=== PATIENT | female | born 1995 | race African-American/Black ===

== ENCOUNTER 2020-03-05 00:38 | Outpatient (CLI) | payer OTHER ==
[2020-03-05 01:34] LABS: APPEARANCE,URINE SLIGHTLY-CLOUDY; BILIRUBIN,URINE NEGATIVE (NEGATIVE); COLOR,URINE YELLOW; GLUCOSE, URINE NEGATIVE (NEGATIVE); KETONES,URINE NEGATIVE (NEGATIVE); LEUKOCYTE ESTERASE,URINE NEGATIVE (NEGATIVE); NITRITE,URINE NEGATIVE (NEGATIVE); PROTEIN,URINE NEGATIVE (NEGATIVE); URINE SPECIFIC GRAVITY 1.014; UROBILINOGEN,URINE NEGATIVE mg/dL (<2.0)
[2020-03-05 01:45] LABS: URINE AMPHETAMINES SCREEN NEGATIVE; URINE BARBITURATES SCREEN NEGATIVE; URINE BENZODIAZEPINES SCREEN NEGATIVE; URINE COCAINE SCREEN NEGATIVE; URINE MARIJUANA (THC) SCREEN NEGATIVE; URINE METHADONE SCREEN NEGATIVE; URINE PHENCYCLIDINE SCREEN NEGATIVE
[2020-03-05] MEDS ORDERED: FLUCONAZOLE 100 MG TABLET PO ONE (01:52)
[2020-03-05] MEDS ORDERED: CEFTRIAXONE INJ 1000 MG VIAL IM ONE (01:53)
[2020-03-05] MEDS ORDERED: LIDOCAINE 1% INJ-PF (10 MG/ML) 30 ML SDV INJ ONE (01:53)
[2020-03-05] MEDS ORDERED: CEFTRIAXONE INJ 1000 MG VIAL ONE (01:58)
[2020-03-05] MEDS ORDERED: LIDOCAINE 1% INJ-PF (10 MG/ML) 30 ML SDV ONE (01:59)
[2020-03-05] MEDS ORDERED: FLUCONAZOLE 100 MG TABLET ONE (01:59)
== END 2020-03-05 02:21 | disposition home or self-care (01) ==
LOC: LC 00:38
PROVIDERS: ATTEND Obstetrics & Gynecology
DX: O23.42 Unspecified infection of urinary tract in pregnancy, second trimester (principal); Z3A.20 20 weeks gestation of pregnancy
CPT/HCPCS: 59899; 81001; 80307; J3490; J0696